=== PATIENT | female | born 2005 | race Caucasian/White ===

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

== ENCOUNTER 2025-05-02 22:34 | Inpatient (IN) | payer OTHER, SELFPAY ==
--- NOTE | ~2025-05-02 | CT_ITS ---
CLINICAL HISTORY: renal colic right side vs constipation CT abdomen and pelvis without contrast Comparison: None provided Findings: The lung bases are clear. Unremarkable gallbladder and solid organs. No urolithiasis. No bowel obstruction, pneumoperitoneum, or pneumatosis. Pelvic contents unremarkable. Normal appendix. No acute fracture. IMPRESSION: No acute findings. This document has been electronically signed by: Andrew Washington MD on 05/03/2025 04:53:41
--- NOTE | ~2025-05-02 | XR_ITS ---
CLINICAL HISTORY: fever, PNA? 1 view chest x-ray Comparison: None provided Findings: The lungs are clear. Normal size heart. No acute fracture. IMPRESSION: 1. No acute findings. This document has been electronically signed by: Andrew Washington MD on 05/03/2025 06:54:37
[2025-05-02 22:48] VITALS: BP 108/66; PULSE 107; RESP 14; TEMP 36.8; O2SAT 98; BMI 38.8
[2025-05-02 23:08] LABS: MANUAL DIFF FLAG NO
[2025-05-02 23:09] LABS: Hematocrit 34.5 % (37.0-47.0); Hemoglobin 12.0 g/dl (12.0-16.0); Imm Gran Abs Auto 0.05 X10*3/uL (0.00-0.03); Imm Gran Pct Auto 0.4 % (0.0-0.4); Lymphocytes Absolute Auto 1.5 X10*3/uL (1.2-4.9); Mean Corpuscular HGB Conc 34.8 g/dl (31.0-35.0); Mean Corpuscular Hemoglobin 28.3 pg (27.0-33.0); Mean Corpuscular Volume 81.4 fL (80.0-98.0); NRBC Abs Auto 0.000 X10*3/uL (0.0-0.012); NRBC Pct Auto 0.0 /100WBC (0.0-0.2); Platelet Count 328 X10*3/uL (160-400); Red Blood Count 4.24 X10*6/uL (4.20-5.50); White Blood Count 12.6 X10*3/uL (4.8-10.8)
--- NOTE | 2025-05-02 23:21 | MHC.EDTECH ---
This tech attempted to get a urine sample, pt is unable to at this time,will re-attempt
[2025-05-02 23:24] LABS: Alanine Aminotransferase 15 U/L (0-31); Albumin Level 4.5 g/dL (3.5-5.0); Alkaline Phosphatase 58 U/L (39-117); Anion Gap 12 (12-20); Aspartate Amino Transferase 19 U/L (5-31); Blood Urea Nitrogen 10 mg/dL (9-16); Calcium 9.2 mg/dL (8.4-10.2); Carbon Dioxide 25 mmol/L (22-29); Chloride 105 mmol/L (96-108); Creatinine Clr Calc Pharmacy 118.8; Estimated Glomerular Filt Rate > 60; Lipase 14 U/L (8-78); Magnesium 1.8 mg/dL (1.6-2.6); Potassium 3.6 mmol/L (3.3-5.1); Sodium 138 mmol/L (135-145); Total Protein 7.3 g/dL (6.5-8.0)
[2025-05-03] VITALS (16 sets, daily range): BP systolic 92–114; BP diastolic 51–73; PULSE 94–116; RESP 12–20; TEMP 36.7–39.5; O2SAT 97–100; BMI 41.5
[2025-05-03 00:29] LABS: Appearance Urine Cloudy; Glucose Urine UA Negative (Negative); PH 6.5 (5.0-9.0); Specific Gravity - Urine <= 1.005 (1.005-1.025); UMIC TRIGGER UACC YES
[2025-05-03 00:31] LABS: UPreg QC Valid YES
[2025-05-03 00:32] LABS: UACC Culture Trigger YES
--- OUTSIDE RECORDS SUMMARY | 2025-05-03 00:48 | XMS_ITS | Clinical Summary ---
Author Organization [facility] ity Address [id number] [place] [id number] Care Team Providers Care Twist Packer Name Role Phone Melissa Burr MD Primary Care Provider [phone] Medical History Medical History Date Comments Adhd DX:ADHD Binge eating disorder 05/09/2022 DX:Binge e ating disorder Irritable bowel syndrome DX:Irri table bowel syndrome Abdominal cramping DX:Abdominal cramping Constipation DX:Constipation Diarrhea DX:Diarrhea Family History Medical History Relation Name Comments Breast cancer Paternal Grandfather Diabetes Paternal Grandmother Hypertension Paternal Grandmother Relation Name Status Comments Paternal Grandfather Paternal Grandmother Social History Tobacco Use Types Packs/Day Years Used Date Smoking Tobacco: Never Smokeless Tobacco: Never Alcohol Use Standard Drinks/Week Comments Never 0 (1 standard drink = 0.6 oz pur e alcohol) Comments Unknown Sex and Gender Information Value Date Recorded Sex Assigned at Not on file Legal Sex Female 12:58 AM EST Gender Identity Not on file Sexual Orientation Not on file Obstetrics History Last Filed Vital Signs Vital Sign Reading Time Taken Comments Blood Pressure 102/70 05/07/2023 3:50 PM EDT Pulse 74 05/07/2023 3:50 PM EDT Temperature - - Respiratory Rate - - Oxygen Saturation - - Inhaled Oxygen Concentration - - Weight 94.8 kg (209 lb) 05/07/2023 3:50 PM EDT Height 157.5 cm (5' 2 ) 04/03/2023 8:10 AM EDT Body Mass Index 38.23 04/03/2023 8:10 AM EDT Plan of Treatment Health Maintenance Due Date Last Done Comments Gonorrhea/Chlamydia Screening 2003 Meningococcal B Vaccine (1 o f 2 - Standard) 2019 HPV Vaccines (2 - 3-dose series) 10/24/2021 02/28/20 22 Hepatitis B Vaccines (1 of 3 - 19+ 3-dose series) 2022 Cholesterol Screening (Lipid Panel) 07/02/2022 HIV Screening 07/02/2022 Hepatitis C Screening 07/02/2022 Social Influencers of Health Screening 07/02/2022 Annual Well Child Visit (3-2 1 years old) 11/22/2023 11/21/2022 Cervical Cancer Screening: P ap Smear 2024 Depression Screening 07/30/2024 COVID-19 Vaccine (1 - 2023-2 5 season) 2025 Influenza Vaccine (#1) 2025 09/26/2021 DTaP,Tdap,and Td Vaccines (2 - Td or Tdap) 09/26/2031 09/26/2021 RSV Immunization Adult Patie nts (1 - 1-dose 75+ series) 2078 HIB Vaccines Aged Out No longer eligi ble based on patient's age to complete this topic Hepatitis A Vaccines Aged Out No long er eligible based on patient's age to complete this topic IPV Vaccines Aged Out No longer eligi ble based on patient's age to complete this topic MMR Vaccines Aged Out No longer eligi ble based on patient's age to complete this topic Meningococcal ACWY Vaccine Aged Out N o longer eligible based on patient's age to complete this topic Pneumococcal Vaccine: Pediat rics (0 to 5 Years) and At-Risk Patients (6 to 49 Years) Aged Out No longer eligi ble based on patient's age to complete this topic RSV Immunization Patients Un prosper 20 months Aged Out No longer eligible b ased on patient's age to complete this topic Varicella Vaccines Aged Out No longer eligible based on patient's age to complete this topic Care Teams Twist Packer Relationship Specialty Start Date End Date Melissa Burr MD [address] [place], [place] [address]nicole OquendoDianaBACILIO [id number] PCP - General 06/30/21
[2025-05-03] MEDS: Sucralfate Oral Suspension 1 GM/10 ML ORAL.SUSP PO (02:32)
[2025-05-03] MEDS: Simethicone 40 MG/0.6 ML ORAL.SUSP PO (02:35)
--- NOTE | 2025-05-03 03:26 | PC.NURSE ---
pt threw up while in ct scan- 15 min or so after RN administered meds. Per RAJESH Rodríguez for RN to but a verbal order of OD rakesh for pt.
--- NOTE | 2025-05-03 03:41 | ED_ITS ---
HPI - General Adult General Chief complaint: Abdominal Pain Stated complaint: lower abd pain/pelvis area Time Seen by Provider: 05/03/25 01:26 Source: patient Limitations: no limitations History of Present Illness ED Provider: Elly North PA-C HPI narrative: 19-year-old female with a history of IBS presents with abdominal pain x2 days. Pain is somewhat generalized, we will some localization to right mid to lower abdomen. The pain radiates up toward epigastrium, and into her back at times. Pain described as sharp, intermittent discomfort the fluctuates in intensity. Pain worse with movement. Associated increased urinary frequency and pressure while voiding. Denies dysuria, hematuria, history of kidney stones or fever. Associated excessive eructation today, with nausea at times. Patient does feel as if her abdomen is somewhat distended. Denies constipation or inability to pass flatus. Related Data Previous Rx's ?Medication ?Instructions ?Recorded cephalexin 500 mg capsule 500 mg PO Q12H #14 caps 12/21 metoclopramide HCl 10 mg tablet 10 mg PO Q6H PRN nause a and 05/03/25 (Reglan) vomiting #12 tabs Allergies Allergy/AdvReac Type Severity Reaction Status Date / Time No Known Allergies Allergy Verified 05/02/25 22:51 Review of Systems 2 Review of Systems: Yes all other systems are reviewed and are negative Constitutional: Constitutional: Denies fatigue and Denies fever(s) Cardiovascular: Cardiovascular: Denies chest pain and Denies dyspnea Respiratory: Respiratory: Denies dyspnea Gastrointestinal: Gastrointestinal: Reports abdominal pain, Denies constipation, Denies diarrhea, Reports nausea and Denies vomiting Genitourinary: Genitourinary: Denies hematuria, Denies dysuria, Reports flank pain and Denies urinary urgency Musculoskeletal: Musculoskeletal: Reports back pain Endocrine: Endocrine: Denies fatigue [facility] Past Medical History Attestation statement: The following information was validated with the patient. Social History Social History Smoked in Last 30 Days: No Substance Use Type: Marijuana Advance Directives: No Advance Directives Information Provided: Yes Do you have a plan to hurt others: No Plan Physical Exam ED Vital Signs: Vital Signs - 24 hr 05/02/25 22:48 05/03/25 03:15 05/03/25 05:53 Temperature 98.2 F 98.1 F 99.3 F Pulse Rate 107 H 105 H 107 H Respiratory Rate 14 18 18 Blood Pressure 108/66 100/53 L 92/51 L Pulse Oximetry 98 99 99 Oxygen Delivery Method Room Air Room Air Room Air 05/03/25 06:00 05/03/25 06:30 Temperature 101.3 F H Pulse Rate 110 H Respiratory Rate Blood Pressure 111/72 Pulse Oximetry Oxygen Delivery Method BMI result Body Mass Index 38.8 Const Other: Alert, well-appearing Orientation/consciousness: patient oriented x3 Resp Effort & Inspection: normal respiratory effort Cardio Other: Normal peripheral perfusion GI Other: Abdomen is soft, obese, generalized tenderness to palpation without guarding no distention Skin Other: Warm dry no rash Neuro General: patient oriented x3, gait normal, no focal motor deficits and CN's II- XI intact bilaterally Psych Other: Cooperative Course Reevaluation(s) Reevaluation #1: At 6:10 a.m. a sepsis focused exam was performed, the patient has become febrile, she is mildly tachycardic, with soft pressures. Obtain blood cultures, lactic, I had already ordered ceftriaxone for her urinary tract infection. Adding on a chest x-ray. Time: 06:10 Medications Administered Generic Name Dose Route Start Last Admin Trade Name Freq PRN Reason Stop Dose Admin Sodium Chloride 2,884.86 mls @ 2,884.86 mls/hr 05/03/25 06:02 05/03/25 06:22 Ns 30 ml/kg infuse over 1 hr (2884.86 ml) 05/03/25 07:01 2,884.86 mls/hr IV Administration .Q1H STA Discontinued Medications Generic Name Dose Route Start Last Admin Trade Name Freq PRN Reason Stop Dose Admin Ceftriaxone Sodium 2 gm 05/03/25 05:45 05/03/25 06:12 Ceftriaxone Sodium 2 Gm Vial IVPUSH 05/03/25 05:46 2 gm ONCE ONE Administration Sodium Chloride 1,000 mls @ 999 mls/hr 05/03/25 05:00 05/03/25 05:25 Ns IV 05/03/25 06:00 999 mls/hr .Q1H1M CORDELIA Administration Acetaminophen 1,000 mg in 100 mls @ 400 mls/hr 05/03/25 06:02 05/03/25 06:23 Ofirmev IV 05/03/25 06:16 400 mls/hr ONCE ONE Administration Ketorolac Tromethamine 15 mg 05/03/25 01:50 05/03/25 02:32 Ketorolac Tromethamine 15 Mg/Ml Vial IM 05/03/25 01:51 15 mg ONCE ONE Administration Metoclopramide HCl 10 mg 05/03/25 04:59 05/03/25 05:26 Metoclopramide Hcl 10 Mg/2 Ml Vial IVPUSH 05/03/25 05:00 10 mg ONCE ONE Administration Ondansetron HCl 4 mg 05/03/25 03:28 05/03/25 03:31 Ondansetron Odt 4 Mg Tab.Rapdis TRANSLINGU 05/03/25 03:29 4 mg ONCE ONE Administration Simethicone 40 mg 05/03/25 01:50 05/03/25 02:35 Simethicone 40 Mg/0.6 Ml Oral.Susp PO 05/03/25 01:51 40 mg ONCE ONE Administration Sucralfate 1 gm 05/03/25 01:50 05/03/25 02:32 Sucralfate Oral Suspension 1 Gm/10 Ml Oral.Susp PO 05/03/25 01:51 1 gm ONCE ONE Administration Medical Decision Making Medical Decision Making MDM Narrative: 19-year-old female with a history of IBS presents with abdominal pain x2 days. Pain is somewhat generalized, we will some localization to right mid to lower abdomen. The pain radiates up toward epigastrium, and into her back at times. Pain described as sharp, intermittent discomfort the fluctuates in intensity. Pain worse with movement. Associated increased urinary frequency and pressure while voiding. Denies dysuria, hematuria, history of kidney stones or fever. Associated excessive eructation today, with nausea at times. Patient does feel as if her abdomen is somewhat distended. Denies constipation or inability to pass flatus. Problem: Obesity, IBS History: Per patient I have considered the following differential diagnoses: Pyelonephritis, UTI, renal colic, constipation, bowel obstruction, appendicitis, ovarian cyst Plan: Patient having some urinary symptoms with flank pain, she is also passing hematuria in her urine, pyelonephritis versus renal colic considered, obtaining a CT scan. Given right-sided symptoms, also considered appendicitis, she does have some degree of focal mid to lower abdominal pain. Given excessive eructation with the nausea today, considered constipation vs bowel obstruction, however she does not have obstructive symptoms at this time. Giving toradol, Carafate and simethicone. Screening labs and urinalysis were completed from triage. I have independently reviewed the following tests: Labs: Slight leukocytosis, not anemic, no electrolyte abnormality, urine appears potentially infected passing hematuria, not , COVID and influenza negative, lactic 0.8 CT abdomen and pelvis:CT abdomen and pelvis without contrast Comparison: None provided Findings: The lung bases are clear. Unremarkable gallbladder and solid organs. No urolithiasis. No bowel obstruction, pneumoperitoneum, or pneumatosis. Pelvic contents unremarkable. Normal appendix. No acute fracture. IMPRESSION: No acute findings. At the time of discharge, the patient is meeting sepsis criteria she is now febrile she is tachycardic, she does have a urinary tract infection, no other source identified, viral panel negative, obtaining a chest x-ray, giving the remainder of her weight based IV fluids, starting Tylenol, she will be getting ceftriaxone after blood cultures and lactic obtained. Differential Diagnosis Differential Diagnoses: The differential diagnosis associated with the presentation includes See medical decision-making Admission/Observation Consideration of admission/observation: Escalation of care including admission/observation considered Not applicable Lab Data MDM Lab Attestation statement: I reviewed the patient's lab results. 05/02/25 23:00 05/02/25 23:00 Labs: Lab Results 05/02/25 05/03/25 05/03/25 Range/Units 23:00 00:13 05:20 WBC 12.6 H (4.8-10.8) X10*3/uL RBC 4.24 (4.20-5.50) X10*6/uL Hgb 12.0 (12.0-16.0) g/dl Hct 34.5 L (37.0-47.0) % MCV 81.4 (80.0-98.0) fL MCH 28.3 (27.0-33.0) pg MCHC 34.8 (31.0-35.0) g/dl RDW 13.4 (11.0-16.0) % Plt Count 328 (160-400) X10*3/uL MPV 9.1 L (9.4-12.3) fL Immature Gran % (Auto) 0.4 (0.0-0.4) % Neut % (Auto) 79.7 H (45-73) % Lymph % (Auto) 11.5 L (20-40) % [place] % (Auto) 7.1 (2-11) % Eos % (Auto) 1.0 (0-4) % Baso % (Auto) 0.3 (0-2) % Lymph # (Auto) 1.5 (1.2-4.9) X10*3/uL [place] # (Auto) 0.9 (0.1-1.2) X10*3/uL Eos # (Auto) 0.1 (0.0-0.4) X10*3/uL Baso # (Auto) 0.0 (0.0-0.2) X10*3/uL Abs Immat Gran (auto) 0.05 H (0.00-0.03) X10*3/uL Absolute Neuts (auto) 10.1 H (2.0-8.3) x10*3/uL Absolute Nucleated RBC 0.000 (0.0-0.012) X10*3/uL Nucleated RBC % (auto) 0.0 (0.0-0.2) /100WBC Sodium 138 (135-145) mmol/L Potassium 3.6 (3.3-5.1) mmol/L Chloride 105 (96-108) mmol/L Carbon Dioxide 25 (22-29) mmol/L Anion Gap 12 (12-20) BUN 10 (9-16) mg/dL Creatinine 0.81 (0.5-1.4) mg/dL Estim Creat Clear Calc 118.8 Estimated GFR > 60 Random Glucose 95 (60-115) mg/dL Lactic Acid (0.5-2.0) mmol/L Calcium 9.2 (8.4-10.2) mg/dL Magnesium 1.8 (1.6-2.6) mg/dL Total Bilirubin 1.0 (0.0-1.0) mg/dL Direct Bilirubin 0.4 (0.0-0.5) mg/dL AST 19 (5-31) U/L ALT 15 (0-31) U/L Alkaline Phosphatase 58 (39-117) U/L Total Protein 7.3 (6.5-8.0) g/dL Albumin 4.5 (3.5-5.0) g/dL Lipase 14 (8-78) U/L Urine Color Yellow Urine Appearance Cloudy Urine pH 6.5 (5.0-9.0) Ur Specific [place] <= 1.005 (1.005-1.025) Urine Protein 30 (1+) H (Neg-Trace) mg/dL Urine Glucose (UA) Negative (Negative) mg/dL Urine Ketones Negative (Negative) mg/dL Urine Blood Large (3+) H (Negative) Urine Nitrite Negative (Negative) Ur Leukocyte Esterase Large (3+) H (Negative) Urine RBC 6-10 H (0-2) /HPF Urine WBC >50 H (0-5) /HPF Ur Squamous Epith Cells 0-2 (0-2) /HPF Urine Bacteria Trace (None Seen) Hyaline Casts 0-2 (0-2) /LPF Urine Test NEGATIVE (NEGATIVE) COVID-19 (LAURA) Negative (Negative) COVID-19 Clin Com See Note Influenza Type A (JOLYNN) Negative (Negative) Influenza Type B (JOLYNN) Negative (Negative) Influenza A & B Note See Note 05/03/25 Range/Units 06:12 WBC (4.8-10.8) X10*3/uL RBC (4.20-5.50) X10*6/uL Hgb (12.0-16.0) g/dl Hct (37.0-47.0) % MCV (80.0-98.0) fL MCH (27.0-33.0) pg MCHC (31.0-35.0) g/dl RDW (11.0-16.0) % Plt Count (160-400) X10*3/uL MPV (9.4-12.3) fL Immature Gran % (Auto) (0.0-0.4) % Neut % (Auto) (45-73) % Lymph % (Auto) (20-40) % [place] % (Auto) (2-11) % Eos % (Auto) (0-4) % Baso % (Auto) (0-2) % Lymph # (Auto) (1.2-4.9) X10*3/uL [place] # (Auto) (0.1-1.2) X10*3/uL Eos # (Auto) (0.0-0.4) X10*3/uL Baso # (Auto) (0.0-0.2) X10*3/uL Abs Immat Gran (auto) (0.00-0.03) X10*3/uL Absolute Neuts (auto) (2.0-8.3) x10*3/uL Absolute Nucleated RBC (0.0-0.012) X10*3/uL Nucleated RBC % (auto) (0.0-0.2) /100WBC Sodium (135-145) mmol/L Potassium (3.3-5.1) mmol/L Chloride (96-108) mmol/L Carbon Dioxide (22-29) mmol/L Anion Gap (12-20) BUN (9-16) mg/dL Creatinine (0.5-1.4) mg/dL Estim Creat Clear Calc Estimated GFR Random Glucose (60-115) mg/dL Lactic Acid 0.8 (0.5-2.0) mmol/L Calcium (8.4-10.2) mg/dL Magnesium (1.6-2.6) mg/dL Total Bilirubin (0.0-1.0) mg/dL Direct Bilirubin (0.0-0.5) mg/dL AST (5-31) U/L ALT (0-31) U/L Alkaline Phosphatase (39-117) U/L Total Protein (6.5-8.0) g/dL Albumin (3.5-5.0) g/dL Lipase (8-78) U/L Urine Color Urine Appearance Urine pH (5.0-9.0) Ur Specific [place] (1.005-1.025) Urine Protein (Neg-Trace) mg/dL Urine Glucose (UA) (Negative) mg/dL Urine Ketones (Negative) mg/dL Urine Blood (Negative) Urine Nitrite (Negative) Ur Leukocyte Esterase (Negative) Urine RBC (0-2) /HPF Urine WBC (0-5) /HPF Ur Squamous Epith Cells (0-2) /HPF Urine Bacteria (None Seen) Hyaline Casts (0-2) /LPF Urine Test (NEGATIVE) COVID-19 (LAURA) (Negative) COVID-19 Clin Com Influenza Type A (JOLYNN) (Negative) Influenza Type B (JOLYNN) (Negative) Influenza A & B Note Radiology Impression Discussion of test interpretation with radiology: I have reviewed the radiologist's reading. Critical Care Time Critical Care Time Critical Care Time: Yes Total Critical Care Time: 35 Attestation: I Elly North PA-C have personally performed 35 minutes of critical care time not including lines and procedures; sepsis, need for IV antibiotics, need for admission, refractory nausea vomiting Discharge Plan Discharge Clinical Impression: Urinary tract infection, Fever Patient Disposition: Admitted As Inpatient Print Language: Yakut
[2025-05-03 05:38] LABS: COVID-19 Test Negative (Negative); IDNOW Serial# 58CA691E
[2025-05-03 05:39] LABS: IDNOW Serial# 55D5AD1C; Influenza B2 Negative (Negative)
[2025-05-03] MEDS: SODIUM CHLORIDE 2884.86 ML IV (06:22)
--- NOTE | 2025-05-03 08:23 | PHA.MEDREC ---
Pharmacy Consult ? Medication Reconciliation Pharmacy has completed the medication reconciliation. Patient only reports taking Vyvanse
--- NOTE | 2025-05-03 08:28 | PM.IMHP ---
History of Present Illness Date of Service: 05/03/25 Attending physician on admission: Jony Mccall Chief Complaint: pelvic pain This is a 19 year old female with history of ADHD who presents to the ED with pelvic pain. She reports two day history of primarily right sided pelvic pain. Sometimes it radiates to her epigastrum and sometimes around the right side. She has pressure with urination no urgency. She had two episodes of vomiting and 2 episodes of diarrhea. She denies recent sick contacts. She denies recent travel or eating take out food. Two weeks ago she had a cough which is still lingering but beginning to improve, no sob. She denies vaginal discharge, painful intercourse or bleeding with intercourse. Her pain does not get worse after eating. In the ED, she was noted to be fibrile with temperature of 101.3, lab work significant for leukocytosis of 12.6. Urinalysis was concerning for urinary tract infection. COVID and influenza tests were negative. Lactic acid was within normal range. She was treated with IV fluid, antiemetics and was started on IV ceftriaxone and the decision was made to admit her to the hospital for further mangement. Review of Systems Review of Systems: Yes all other systems are reviewed and are negative Constitutional: Constitutional: Reports body ache(s), Denies chills and Reports fever(s) ENT: Denies dizziness Cardiovascular: Cardiovascular: Denies chest pain, Denies palpitations and Denies dyspnea Respiratory: Respiratory: Denies dyspnea Gastrointestinal: Gastrointestinal: Reports abdominal pain, Reports loose stools, Reports nausea and Reports vomiting Neurologic: Denies dizziness Endocrine: Endocrine: Denies palpitations [facility] Medical History (Updated 05/03/25 @ 08:49 by CHRISTY Leal) ADHD Social History Smoked in Last 30 Days: No Substance Use Type: Marijuana Advance Directives: No Advance Directives Information Provided: Yes Do you have a plan to hurt others: No Plan Meds Allergies Allergy/AdvReac Type Severity Reaction Status Date / Time No Known Allergies Allergy Verified 05/02/25 22:51 Active Medications: Current Medications Acetaminophen (Acetaminophen 325 Mg Tablet) 650 mg PO Q6H PRN PRN Reason: Pain, Mild 1-3,fever,headache Calcium Carbonate (Calcium Carbonate 750 Mg Tab.Chew) 750 mg PO Q4H PRN PRN Reason: Heartburn Ceftriaxone Sodium (Ceftriaxone Sodium 1 Gm Vial) 1 gm IVPUSH Q24H [facility] Lactated Ringer's (Lr) 1,000 mls @ 125 mls/hr IVCONT .Q8H [facility] Ibuprofen (Ibuprofen 400 Mg Tablet) 400 mg PO Q6H PRN PRN Reason: Fever >101 Ketorolac Tromethamine (Ketorolac Tromethamine 30 Mg/Ml Vial) 15 mg IVPUSH Q6H PRN PRN Reason: Pain, Moderate(Pain Scale 4-6) Magnesium Hydroxide (Milk Of Magnesia 30 Ml Oral.Susp) 30 ml PO DAILY PRN PRN Reason: Constipation Melatonin (Melatonin 3 Mg Tablet) 6 mg PO BEDTIME PRN PRN Reason: Insomnia Ondansetron HCl (Ondansetron Hcl 4 Mg/2 Ml Vial) 4 mg IVPUSH Q8H PRN PRN Reason: Nausea and Vomiting Sodium Chloride (0.9 % Sodium Chloride Flush 3 Ml Syringe) 3 ml IVFLUSH QSHIFT [facility] Home Medications ?Medication ?Instructions ?Recorded ?Confirmed ?Last Taken ?Type lisdexamfetamine 40 mg capsule 40 mg PO DAILY 05/03/25 05/03/25 Unknown History Physical Exam Vital Signs and Narrative: Vital Signs: Last Vital Signs Temp 99.2 F 05/03/25 08:12 Pulse 104 H 05/03/25 08:12 Resp 20 05/03/25 08:12 BP 105/60 05/03/25 08:12 Pulse Ox 98 05/03/25 08:12 O2 Del Method Room Air 05/03/25 08:12 BMI result Body Mass Index 38.8 Const: General: comfortable, no acute distress, alert and awake Nutritional Appearance: obese Orientation/consciousness: patient oriented x3 Resp: Effort & Inspection: normal respiratory effort, able to speak in complete sentences, no respiratory distress and no use of accessory muscles Cardio: Rate: tachycardic GI: Other: mild RLQ tender to deep palpation; no guarding, no rigidity, no rebound Palpation (GI): Soft to palpation : Other: mild right CVAT Neuro: General: patient oriented x3 and No moves all extremities Results Labs 05/02/25 23:00 05/02/25 23:00 Labs: Laboratory Results - last 24 hr 05/02/25 05/03/25 05/03/25 23:00 00:13 05:20 MCV 81.4 MCH 28.3 MCHC 34.8 RDW 13.4 Plt Count 328 MPV 9.1 L Immature Gran % (Auto) 0.4 Neut % (Auto) 79.7 H Lymph % (Auto) 11.5 L Bryan % (Auto) 7.1 Eos % (Auto) 1.0 Baso % (Auto) 0.3 Lymph # (Auto) 1.5 [place] # (Auto) 0.9 Eos # (Auto) 0.1 Baso # (Auto) 0.0 Abs Immat Gran (auto) 0.05 H Absolute Neuts (auto) 10.1 H Absolute Nucleated RBC 0.000 Nucleated RBC % (auto) 0.0 Anion Gap 12 Estim Creat Clear Calc 118.8 Estimated GFR > 60 Random Glucose 95 Lactic Acid Calcium 9.2 Magnesium 1.8 Total Bilirubin 1.0 Direct Bilirubin 0.4 AST 19 ALT 15 Alkaline Phosphatase 58 Total Protein 7.3 Albumin 4.5 Lipase 14 Urine Color Yellow Urine Appearance Cloudy Urine pH 6.5 Ur Specific [place] <= 1.005 Urine Protein 30 (1+) H Urine Glucose (UA) Negative Urine Ketones Negative Urine Blood Large (3+) H Urine Nitrite Negative Ur Leukocyte Esterase Large (3+) H Urine RBC 6-10 H Urine WBC >50 H Ur Squamous Epith Cells 0-2 Urine Bacteria Trace Hyaline Casts 0-2 Urine Test NEGATIVE COVID-19 ([facility]) Negative COVID-19 Clin Com See Note Influenza Type A (JOLYNN) Negative Influenza Type B (JOLYNN) Negative Influenza A & B Note See Note 05/03/25 06:12 MCV MCH MCHC RDW Plt Count MPV Immature Gran % (Auto) Neut % (Auto) Lymph % (Auto) Bryan % (Auto) Eos % (Auto) Baso % (Auto) Lymph # (Auto) Bryan # (Auto) Eos # (Auto) Baso # (Auto) Abs Immat Gran (auto) Absolute Neuts (auto) Absolute Nucleated RBC Nucleated RBC % (auto) Anion Gap Estim Creat Clear Calc Estimated GFR Random Glucose Lactic Acid 0.8 Calcium Magnesium Total Bilirubin Direct Bilirubin AST ALT Alkaline Phosphatase Total Protein Albumin Lipase Urine Color Urine Appearance Urine pH Ur Specific [place] Urine Protein Urine Glucose (UA) Urine Ketones Urine Blood Urine Nitrite Ur Leukocyte Esterase Urine RBC Urine WBC Ur Squamous Epith Cells Urine Bacteria Hyaline Casts Urine Test COVID-19 ([facility]) COVID-19 Clin Com Influenza Type A (JOLYNN) Influenza Type B (JOLYNN) Influenza A & B Note Assessment and Plan (1) Urinary tract infection: Status: Acute Plan This is a 19 year old female with history of ADHD who presents to the ED with pelvic pain found to have fever and UA concerning for UTI. Sepsis due to acute pyelonephritis Fever, leukocytosis and tachycardia LA normal continue IVF continue IV ceftriaxone follow urine culture trend CBC Pelvic pain likely due to above CT abdomen/pelvis with normal appearing GB, LFTs normal; lipase normal; no ovarian cysts denies dyspareunia, vaginal discharge, postcoital bleeding to suggest PID does have underlying h/o IBS pain already starting to improve with IV abx follow clinical course Diarrhea possibly due to IBS no recent antibiotic use if persistent can consider GI panel ADHD continue baseline meds DVT ppx - low risk early ambulation, mechanical devices code status - full code Patient will likely require 2 midnight stay in the hospital for management of sepsis/pyelonephritis requiring IV antibiotics and close monitor Quality Stroke Does the patient have a stroke diagnosis?: No VTE Prior VTE?: No VTE Risk Level:: Medical - moderate - high VTE Device Contraindication: N/A - Device Ordered VTE Drug Contraindication: Treatment Not Indicated
[2025-05-03] MEDS: Lactated Ringers 1,000 ML 125 ML IVCONT ×2 (08:43→16:53)
[2025-05-03 12:28] LABS: Chlamydia pneumoniae PCR Not Detected (Not Detect.); Coronavirus 229E PCR Not Detected (Not Detect.); Coronavirus HKU1 PCR Not Detected (Not Detect.); Coronavirus NL63 PCR Not Detected (Not Detect.); Coronavirus OC43 PCR Not Detected (Not Detect.); RSV PCR Not Detected (Not Detect.); Rhino/Enterovirus PCR Not Detected (Not Detect.)
[2025-05-03 12:40] LABS: Influenza A H1 PCR Not Detected (Not Detect.); Influenza A H1-2009 PCR Not Detected (Not Detect.); Influenza A H3 PCR Not Detected (Not Detect.); SARS-CoV-2 PCR Not Detected (Not Detect.)
[2025-05-03] MEDS: 0.9 % Sodium Chloride Flush 3 ML SYRINGE IVFLUSH (15:37)
--- NOTE | 2025-05-03 19:21 | PC.NURSE ---
assumed care of pt, LR running at 125 per MAR, pt denies chills, temp 98.6, pain rated at 5/10 in lower back and pelvis area. pt ambulated to bathroom with steady gate.
--- NOTE | 2025-05-03 20:23 | PC.NURSE ---
reports increased pain, last toradol given at 1536 and is Q6, admitting provider advised, RN for pt upstairs (Ayan) also advised. pt due to go upstairs within the next 20 minutes or so.
[2025-05-03] MEDS: oxyCODONE HCl Immed Release 5 MG TABLET PO (21:02)
[2025-05-04] VITALS (9 sets, daily range): BP systolic 104–117; BP diastolic 57–72; PULSE 69–93; RESP 16–18; TEMP 36.1–38.3; O2SAT 93–100
[2025-05-04] MEDS: Lactated Ringers 1,000 ML 125 ML IVCONT ×3 (00:46→17:09)
[2025-05-04 08:38] LABS: Hematocrit 32.7 % (37.0-47.0); Hemoglobin 11.1 g/dl (12.0-16.0); Mean Corpuscular HGB Conc 33.9 g/dl (31.0-35.0); Mean Corpuscular Hemoglobin 27.7 pg (27.0-33.0); Mean Corpuscular Volume 81.5 fL (80.0-98.0); NRBC Abs Auto 0.000 X10*3/uL (0.0-0.012); NRBC Pct Auto 0.0 /100WBC (0.0-0.2); Platelet Count 300 X10*3/uL (160-400); Red Blood Count 4.01 X10*6/uL (4.20-5.50); White Blood Count 17.9 X10*3/uL (4.8-10.8)
[2025-05-04 08:52] LABS: Anion Gap 14 (12-20); Blood Urea Nitrogen 6 mg/dL (9-16); Calcium 8.5 mg/dL (8.4-10.2); Carbon Dioxide 19 mmol/L (22-29); Chloride 107 mmol/L (96-108); Creatinine Clr Calc Pharmacy 135.2; Estimated Glomerular Filt Rate > 60; Potassium 3.3 mmol/L (3.3-5.1); Sodium 137 mmol/L (135-145)
[2025-05-04 09:15] LABS: E. coli EAEC Not Detected (Not Detect.); E. coli EPEC Not Detected (Not Detect.); E. coli ETEC Not Detected (Not Detect.); E. coli STEC Not Detected (Not Detect.); Shigella sp./EIEC Not Detected (Not Detect.)
--- NOTE | 2025-05-04 11:47 | P.PNIM_ITS ---
Subjective Subjective Date of Service: 05/04/25 Interval History: fever of 103.1 overnight, now 100.1 c/o nausea/vomiting, bladder pain 1 prior UTI Review of Systems Review of Systems: Yes all other systems are reviewed and are negative Physical Exam 2 Vital Signs: Vital Signs: Last Vital Signs Temp 100.1 F 05/04/25 11:20 Pulse 90 05/04/25 11:20 Resp 18 05/04/25 11:20 BP 114/69 05/04/25 11:20 Pulse Ox 100 05/04/25 11:20 O2 Del Method Room Air 05/04/25 11:20 BMI result Body Mass Index 41.5 Gen: in no acute distress HEENT: sclera anicteric, moist mucus membranes Neck: supple Lungs: clear to auscultation bilaterally Heart: regular rate and rhythm, no murmurs Abd: soft, suprapubic tenderness, non-distended, obese Ext: no edema Skin: warm/well-perfused Neuro: alert and oriented x3, no focal findings Psych: appropriate affect Objective Data Active Medications Acetaminophen (Acetaminophen 325 Mg Tablet) 650 mg PO Q6H PRN PRN Reason: Pain, Mild 1-3,fever,headache Last Admin: 05/03/25 10:40 Dose: 650 mg Documented By: AUDREY Calcium Carbonate (Calcium Carbonate 750 Mg Tab.Chew) 750 mg PO Q4H PRN PRN Reason: Heartburn Ceftriaxone Sodium (Ceftriaxone Sodium 1 Gm Vial) 1 gm IVPUSH Q24H [facility] Last Admin: 05/04/25 05:10 Dose: 1 gm Documented By: VALERIE Lactated Ringer's (Lr) 1,000 mls @ 125 mls/hr IVCONT .Q8H [facility] Last Admin: 05/04/25 07:42 Dose: 125 mls/hr Documented By: DANA Magnesium Hydroxide (Milk Of Magnesia 30 Ml Oral.Susp) 30 ml PO DAILY PRN PRN Reason: Constipation Melatonin (Melatonin 3 Mg Tablet) 6 mg PO BEDTIME PRN PRN Reason: Insomnia Ondansetron HCl (Ondansetron Hcl 4 Mg/2 Ml Vial) 4 mg IVPUSH Q4H PRN PRN Reason: Nausea and Vomiting Phenazopyridine HCl (Phenazopyridine Hcl 200 Mg Tablet) 200 mg PO TIDWM [facility] Stop: 05/06/25 08:01 Sodium Chloride (0.9 % Sodium Chloride Flush 3 Ml Syringe) 3 ml IVFLUSH QSHIFT [facility] Last Admin: 05/04/25 07:47 Dose: Not Given Documented By: DANA Non-Admin Reason: IV Running Labs 05/04/25 08:20 05/04/25 08:20 Labs: Laboratory Results - last 24 hr 05/03/25 05/03/25 05/04/25 10:42 12:57 08:20 MCV 81.5 MCH 27.7 MCHC 33.9 RDW 13.7 Plt Count 300 MPV 9.3 L Absolute Nucleated RBC 0.000 Nucleated RBC % (auto) 0.0 Anion Gap 14 Estim Creat Clear Calc 135.2 Estimated GFR > 60 Random Glucose 104 Calcium 8.5 D C-Reactive Protein 21.42 H Stl C. cayetanensis PCR Not Detected Stool Rotavirus A PCR Not Detected Stl Adenov F 40/41 PCR Not Detected Stool Astrovirus (PCR) Not Detected Stool Campylobacter PCR Not Detected Stool Cryptosporidium PCR Not Detected Stl Sh Tox Pr E STEC PCR Not Detected Stool E coli O157 PCR Not applicable Stl Enterotoxigenic E PCR Not Detected Stool EPEC (PCR) Not Detected Stool EAEC (PCR) Not Detected Stl E. histolytica PCR Not Detected Stool Giardia Lamblia PCR Not Detected Stl P. shigelloides PCR Not Detected Stool Salmonella PCR Not Detected Stool Sapovirus (PCR) Not Detected Stl Shigella/EIEC PCR Not Detected St Y.enterocolitica PCR Not Detected Stool Vibrio (PCR) Not Detected Stl Vibrio cholerae PCR Not Detected Stl Norovirus GI/GII PCR Not Detected Respiratory Panel [place] See Note Adenovirus (Rapid PCR) Not Detected B.pert (TEM-PCR) Not Detected B.parapertussis DNA PCR Not Detected C. pneumoniae DNA (PCR) Not Detected Coronavirus OC43 (PCR) Not Detected Coronavirus HKU1 (PCR) Not Detected Coronavirus 229E (PCR) Not Detected Coronavirus NL63 (PCR) Not Detected Human Metapneumovir PCR Not Detected Influenza A (RT-PCR) Not Detected Influenza A (H1) PCR Not Detected Influ A (H1/09) PCR Not Detected Influenza A (H3) PCR Not Detected Influenza B (RT-PCR) Not Detected M. pneumoniae (PCR) Not Detected Parainfluenza 1 (PCR) Not Detected Parainfluenza 2 (PCR) Not Detected Parainfluenza 3 (PCR) Not Detected Parainfluenza 4 (PCR) Not Detected RSV (PCR) Not Detected Entero/Rhino (PCR) Not Detected SARS-CoV-2 RNA (RT-PCR) Not Detected Microbiology Microbiology Results: Microbiology 05/03/25 06:13 Urine Culture - Preliminary Urine clean catch - Clean Catch Midstream Gram negative lesley 05/03/25 06:12 Blood Culture - Preliminary Blood - Venous No growth after 24 hours. 05/03/25 06:12 Blood Culture - Preliminary Blood - Venous No growth after 24 hours. Assessment and Plan (1) Urinary tract infection: Status: Acute Plan d2, 19yo F presenting with pelvic pain, found to be febrile and septic due to acute pyelonephritis sepsis due to acute pyelonephritis - 05/03- ceftriaxone, follow BCx/UCx, phenazopyridine diarrhea - possibly due to IBS, minimal diarrhea at this point VTE ppx: early ambulation dispo: home In my clinical judgment, the patient requires continued inpatient hospitalization for the following reasons: IV ABX Total time managing care of this patient today: 35 minutes. Quality Stroke Does the patient have a stroke diagnosis?: No VTE Prior VTE?: No VTE Risk Level:: Medical - moderate - high VTE Device Contraindication: N/A - Device Ordered VTE Drug Contraindication: Treatment Not Indicated
--- NOTE | 2025-05-04 12:47 | MHC.CM.PN ---
PT REPORTS SHE LIVES WITH HER S/O AND IS INDEPENDENT SHE HAS NO DME OR SERVICES DECLINES A HCP PCP: BIN PARRA DCP: HOME VIA PRIVATE TRANSPORT
[2025-05-05] MEDS: Lactated Ringers 1,000 ML 125 ML IVCONT ×2 (00:14→08:17)
[2025-05-05 03:35] VITALS: BP 120/80; PULSE 100; RESP 18; TEMP 37.1; O2SAT 96
[2025-05-05 06:13] LABS: Hematocrit 27.5 % (37.0-47.0); Hemoglobin 9.2 g/dl (12.0-16.0); Mean Corpuscular HGB Conc 33.5 g/dl (31.0-35.0); Mean Corpuscular Hemoglobin 27.8 pg (27.0-33.0); Mean Corpuscular Volume 83.1 fL (80.0-98.0); NRBC Abs Auto 0.000 X10*3/uL (0.0-0.012); NRBC Pct Auto 0.0 /100WBC (0.0-0.2); Platelet Count 246 X10*3/uL (160-400); Red Blood Count 3.31 X10*6/uL (4.20-5.50); White Blood Count 12.3 X10*3/uL (4.8-10.8)
[2025-05-05 08:00] VITALS: BP 114/71; PULSE 91; RESP 18; TEMP 36.8; O2SAT 97
[2025-05-05 11:53] VITALS: BP 111/69; PULSE 70; RESP 18; TEMP 36.6; O2SAT 96
--- NOTE | 2025-05-05 13:01 | PM.DS ---
DS: Providers Provider Date of Service: 05/05/25 Date of admission: 05/03/25 06:57 Date of discharge: 05/05/25 Primary care physician: Shirley Lechuga MD DS: Diagnosis Discharge Diagnosis (1) Urinary tract infection: Status: Acute (2) Sepsis: Status: Acute (3) Pyelonephritis: Status: Acute DS: Summary Hospital Course Hospital Course: From the history and physical by the admitting hospitalist, CHRISTY Hills, 05/03/25: This is a 19 year old female with history of ADHD who presents to the ED with pelvic pain. She reports two day history of primarily right sided pelvic pain. Sometimes it radiates to her epigastrum and sometimes around the right side. She has pressure with urination no urgency. She had two episodes of vomiting and 2 episodes of diarrhea. She denies recent sick contacts. She denies recent travel or eating take out food. Two weeks ago she had a cough which is still lingering but beginning to improve, no sob. She denies vaginal discharge, painful intercourse or bleeding with intercourse. Her pain does not get worse after eating. In the ED, she was noted to be fibrile with temperature of 101.3, lab work significant for leukocytosis of 12.6. Urinalysis was concerning for urinary tract infection. COVID and influenza tests were negative. Lactic acid was within normal range. She was treated with IV fluid, antiemetics and was started on IV ceftriaxone and the decision was made to admit her to the hospital for further mangement. 19yo F presenting with pelvic pain, found to be febrile and septic due to acute pyelonephritis and admitted to the medical-surgical unit. Fever, nausea, vomiting, and pelvic+flank pain improved as she was treated with 3 days of IV ceftriaxone. Blood cultures negative; urine culture grew rhodes-sensitive E. coli. She was discharged on 7 days of cefuroxime. Time Attestation Discharge Coordination Time (in mins): 35 Quality: Safe Use of Opioids Does Pt have an Active Cancer Diagnosis on the Problem List?: No Quality: Stroke Does the patient have a stroke diagnosis?: No Physical Exam Vital Signs: Vital Signs: Last Vital Signs Temp 97.9 F 05/05/25 11:53 Pulse 70 05/05/25 11:53 Resp 18 05/05/25 11:53 BP 111/69 05/05/25 11:53 Pulse Ox 96 05/05/25 11:53 O2 Del Method Room Air 05/05/25 11:53 BMI result Body Mass Index 41.5 Gen: in no acute distress HEENT: sclera anicteric, moist mucus membranes Neck: supple Lungs: clear to auscultation bilaterally Heart: regular rate and rhythm, no murmurs Abd: soft, non-tender, non-distended, obese Ext: no edema Skin: warm/well-perfused Neuro: alert and oriented x3, no focal findings Psych: appropriate affect DS: Data Data Completed and Pending Completed studies during hospitalization [Text1]: Laboratory Results WBC 12.3 X10*3/uL (4.8-10.8) H 05/05/25 05:45 RBC 3.31 X10*6/uL (4.20-5.50) L 05/05/25 05:45 Hgb 9.2 g/dl (12.0-16.0) L 05/05/25 05:45 Hct 27.5 % (37.0-47.0) L 05/05/25 05:45 MCV 83.1 fL (80.0-98.0) 05/05/25 05:45 MCH 27.8 pg (27.0-33.0) 05/05/25 05:45 MCHC 33.5 g/dl (31.0-35.0) 05/05/25 05:45 RDW 13.9 % (11.0-16.0) 05/05/25 05:45 Plt Count 246 X10*3/uL (160-400) 05/05/25 05:45 MPV 9.7 fL (9.4-12.3) 05/05/25 05:45 Immature Gran % (Auto) 0.4 % (0.0-0.4) 05/02/25 23:00 Neut % (Auto) 79.7 % (45-73) H 05/02/25 23:00 Lymph % (Auto) 11.5 % (20-40) L 05/02/25 23:00 [place] % (Auto) 7.1 % (2-11) 05/02/25 23:00 Eos % (Auto) 1.0 % (0-4) 05/02/25 23:00 Baso % (Auto) 0.3 % (0-2) 05/02/25 23:00 Lymph # (Auto) 1.5 X10*3/uL (1.2-4.9) 05/02/25 23:00 [place] # (Auto) 0.9 X10*3/uL (0.1-1.2) 05/02/25 23:00 Eos # (Auto) 0.1 X10*3/uL (0.0-0.4) 05/02/25 23:00 Baso # (Auto) 0.0 X10*3/uL (0.0-0.2) 05/02/25 23:00 Abs Immat Gran (auto) 0.05 X10*3/uL (0.00-0.03) H 05/02/25 23:00 Absolute Neuts (auto) 10.1 x10*3/uL (2.0-8.3) H 05/02/25 23:00 Absolute Nucleated RBC 0.000 X10*3/uL (0.0-0.012) 05/05/25 05:45 Nucleated RBC % (auto) 0.0 /100WBC (0.0-0.2) 05/05/25 05:45 Sodium 137 mmol/L (135-145) 05/04/25 08:20 Potassium 3.3 mmol/L (3.3-5.1) 05/04/25 08:20 Chloride 107 mmol/L (96-108) 05/04/25 08:20 Carbon Dioxide 19 mmol/L (22-29) L 05/04/25 08:20 Anion Gap 14 (12-20) 05/04/25 08:20 BUN 6 mg/dL (9-16) L 05/04/25 08:20 Creatinine 0.74 mg/dL (0.5-1.4) 05/04/25 08:20 Estim Creat Clear Calc 135.2 05/04/25 08:20 Estimated GFR > 60 05/04/25 08:20 Random Glucose 104 mg/dL (60-115) 05/04/25 08:20 Lactic Acid 0.8 mmol/L (0.5-2.0) 05/03/25 06:12 Calcium 8.5 mg/dL (8.4-10.2) D 05/04/25 08:20 Magnesium 1.8 mg/dL (1.6-2.6) 05/02/25 23:00 Total Bilirubin 1.0 mg/dL (0.0-1.0) 05/02/25 23:00 Direct Bilirubin 0.4 mg/dL (0.0-0.5) 05/02/25 23:00 AST 19 U/L (5-31) 05/02/25 23:00 ALT 15 U/L (0-31) 05/02/25 23:00 Alkaline Phosphatase 58 U/L (39-117) 05/02/25 23:00 C-Reactive Protein 21.42 mg/dL (< or = 0.50) H 05/04/25 08:20 Total Protein 7.3 g/dL (6.5-8.0) 05/02/25 23:00 Albumin 4.5 g/dL (3.5-5.0) 05/02/25 23:00 Lipase 14 U/L (8-78) 05/02/25 23:00 Urine Color Yellow 05/03/25 00:13 Urine Appearance Cloudy 05/03/25 00:13 Urine pH 6.5 (5.0-9.0) 05/03/25 00:13 Ur Specific [place] <= 1.005 (1.005-1.025) 05/03/25 00:13 Urine Protein 30 (1+) mg/dL (Neg-Trace) H 05/03/25 00:13 Urine Glucose (UA) Negative mg/dL (Negative) 05/03/25 00:13 Urine Ketones Negative mg/dL (Negative) 05/03/25 00:13 Urine Blood Large (3+) (Negative) H 05/03/25 00:13 Urine Nitrite Negative (Negative) 05/03/25 00:13 Ur Leukocyte Esterase Large (3+) (Negative) H 05/03/25 00:13 Urine RBC 6-10 /HPF (0-2) H 05/03/25 00:13 Urine WBC >50 /HPF (0-5) H 05/03/25 00:13 Ur Squamous Epith Cells 0-2 /HPF (0-2) 05/03/25 00:13 Urine Bacteria Trace (None Seen) 05/03/25 00:13 Hyaline Casts 0-2 /LPF (0-2) 05/03/25 00:13 Urine Test NEGATIVE (NEGATIVE) 05/03/25 00:13 Stl C. cayetanensis PCR Not Detected (Not Detect.) 05/03/25 12:57 Stool Rotavirus A PCR Not Detected (Not Detect.) 05/03/25 12:57 Stl Adenov F 40/41 PCR Not Detected (Not Detect.) 05/03/25 12:57 Stool Astrovirus (PCR) Not Detected (Not Detect.) 05/03/25 12:57 Stool Campylobacter PCR Not Detected (Not Detect.) 05/03/25 12:57 Stool Cryptosporidium PCR Not Detected (Not Detect.) 05/03/25 12:57 Stl Sh Tox Pr E STEC PCR Not Detected (Not Detect.) 05/03/25 12:57 Stool E coli O157 PCR Not applicable (Not Detect.) 05/03/25 12:57 Stl Enterotoxigenic E PCR Not Detected (Not Detect.) 05/03/25 12:57 Stool EPEC (PCR) Not Detected (Not Detect.) 05/03/25 12:57 Stool EAEC (PCR) Not Detected (Not Detect.) 05/03/25 12:57 Stl E. histolytica PCR Not Detected (Not Detect.) 05/03/25 12:57 Stool Giardia Lamblia PCR Not Detected (Not Detect.) 05/03/25 12:57 Stl P. shigelloides PCR Not Detected (Not Detect.) 05/03/25 12:57 Stool Salmonella PCR Not Detected (Not Detect.) 05/03/25 12:57 Stool Sapovirus (PCR) Not Detected (Not Detect.) 05/03/25 12:57 Stl Shigella/EIEC PCR Not Detected (Not Detect.) 05/03/25 12:57 St Y.enterocolitica PCR Not Detected (Not Detect.) 05/03/25 12:57 Stool Vibrio (PCR) Not Detected (Not Detect.) 05/03/25 12:57 Stl Vibrio cholerae PCR Not Detected (Not Detect.) 05/03/25 12:57 Stl Norovirus GI/GII PCR Not Detected (Not Detect.) 05/03/25 12:57 Respiratory Panel [place] See Note 05/03/25 10:42 Adenovirus (Rapid PCR) Not Detected (Not Detect.) 05/03/25 10:42 B.pert (TEM-PCR) Not Detected (Not Detect.) 05/03/25 10:42 B.parapertussis DNA PCR Not Detected (Not Detect.) 05/03/25 10:42 C. pneumoniae DNA (PCR) Not Detected (Not Detect.) 05/03/25 10:42 Coronavirus OC43 (PCR) Not Detected (Not Detect.) 05/03/25 10:42 Coronavirus HKU1 (PCR) Not Detected (Not Detect.) 05/03/25 10:42 Coronavirus 229E (PCR) Not Detected (Not Detect.) 05/03/25 10:42 COVID-19 ([facility]) Negative (Negative) 05/03/25 05:20 COVID-19 Clin Com See Note 05/03/25 05:20 Coronavirus NL63 (PCR) Not Detected (Not Detect.) 05/03/25 10:42 Human Metapneumovir PCR Not Detected (Not Detect.) 05/03/25 10:42 Influenza Type A ([facility]NN) Negative (Negative) 05/03/25 05:20 Influenza A (RT-PCR) Not Detected (Not Detect.) 05/03/25 10:42 Influenza A (H1) PCR Not Detected (Not Detect.) 05/03/25 10:42 Influ A (H1/09) PCR Not Detected (Not Detect.) 05/03/25 10:42 Influenza A (H3) PCR Not Detected (Not Detect.) 05/03/25 10:42 Influenza Type B ([facility]NN) Negative (Negative) 05/03/25 05:20 Influenza B (RT-PCR) Not Detected (Not Detect.) 05/03/25 10:42 Influenza A & B Note See Note 05/03/25 05:20 M. pneumoniae (PCR) Not Detected (Not Detect.) 05/03/25 10:42 Parainfluenza 1 (PCR) Not Detected (Not Detect.) 05/03/25 10:42 Parainfluenza 2 (PCR) Not Detected (Not Detect.) 05/03/25 10:42 Parainfluenza 3 (PCR) Not Detected (Not Detect.) 05/03/25 10:42 Parainfluenza 4 (PCR) Not Detected (Not Detect.) 05/03/25 10:42 RSV (PCR) Not Detected (Not Detect.) 05/03/25 10:42 Entero/Rhino (PCR) Not Detected (Not Detect.) 05/03/25 10:42 SARS-CoV-2 RNA (RT-PCR) Not Detected (Not Detect.) 05/03/25 10:42 Discharge Plan Discharge Anticipated Discharge Date/Time: 05/05/25 12:56 Patient Disposition: Home, Self-Care Discharge Diagnosis: sepsis due to urinary tract infection/pyelonephritis Referrals: Jesse Lechuga MD [Primary Care Provider, Internal Medicine] - 1 Week Discharge Medications: New phenazopyridine 200 mg Tablet 200 mg PO TIDWM PRN (Reason: urinary pain) Qty: 6 0RF ondansetron 4 mg tablet,disintegrating 4 mg PO Q8H PRN (Reason: nausea and vomiting) Qty: 10 0RF cefuroxime axetil 500 mg tablet 500 mg PO BID Qty: 14 0RF Continued lisdexamfetamine 40 mg capsule 40 mg PO DAILY Discharge Orders: Discharge Order (Routine); Ordered 05/05/25 Ordered By: Pallavi Jurado Diet: Advance to usual diet Activity on Discharge: As tolerated Stand Alone Forms: Patient Portal Discharge page, Work/School Release Print Language: [place] Leonean Care Plan Goals: recover from infection Health Concerns: sepsis due to urinary tract infection/pyelonephritis Plan of Treatment: cefuroxime 500 mg twice daily for seven days Pyridium as needed for urinary pain ondansetron as needed for nausea/vomiting drink plenty of fluids Please follow up with your primary care doctor within 1 week. Return to the hospital if you experience recurrent or worsening symptoms. Assessment: See Discharge Summary. Patient Instructions: Viral Syndrome (ED)
--- NOTE | 2025-05-05 13:10 | MHC.CM.PN ---
DP: PT HAS BEEN MEDICALLY CLEARED FOR DC HOME, NO SERVICES. PT'S PARTNER WILL TRANSPORT.
== END 2025-05-05 13:29 | disposition home or self-care (01) | DRG 720 ==
LOC: HO.ED 05-03 06:09 → HO.EDOVER 05-03 07:02 → HO.IMC 05-03 19:36 → HO.S3 05-04 19:26
PROVIDERS: Physician Assistant Medical; Admitting Provider Internal Medicine; Emergency Provider Emergency Medicine; PCP Internal Medicine; Visit Provider Family Medicine
DX: A41.9 Sepsis, unspecified organism (principal); B96.20 Unspecified Escherichia coli [E. coli] as the cause of diseases classified elsewhere; F90.9 Attention-deficit hyperactivity disorder, unspecified type; K58.0 Irritable bowel syndrome with diarrhea; N10 Acute pyelonephritis; Z20.822 Contact with and (suspected) exposure to COVID-19; Z79.899 Other long term (current) drug therapy
CPT/HCPCS: 36415; 71045; 74176; 80048; 80053; 81001; 81025; 82248; 83605; 83690; 83735; 85025; 85027; 86140; 87040; 87086; 87088; 87186; 87502; 87507; 87633; 87635; 99221; 99285; J0131; J0696; J1885; J2405; J2765; J7120

== ENCOUNTER → 2025-05-03 01:50 | Outpatient (BNV) | payer OTHER, SELFPAY | PROVIDERS: Emergency Provider Emergency Medicine; PCP Internal Medicine; Visit Provider Specialist | DX: Z03.89 Encounter for observation for other suspected diseases and conditions ruled out (principal); R50.9 Fever, unspecified | CPT/HCPCS: 71045; 74176 ==

== ENCOUNTER → 2025-05-03 06:57 | Outpatient (BNV) | payer OTHER, SELFPAY | PROVIDERS: Admitting Provider Internal Medicine; Emergency Provider Emergency Medicine; PCP Internal Medicine; Visit Provider Family Medicine | DX: N39.0 Urinary tract infection, site not specified (principal); A41.9 Sepsis, unspecified organism; N12 Tubulo-interstitial nephritis, not specified as acute or chronic | CPT/HCPCS: 99223; 99232; 99239 ==